=== PATIENT | female | born 1950 | race Caucasian/White ===

== ENCOUNTER 2017-10-02 10:06 | Emergency (ER) | payer OTHER, MEDICARE ==
[~2017-10-02] VITALS: Ht 152.4 cm; Wt 59.0 kg
--- NOTE | 2017-10-02 10:14 | ED MVC/FALL/TRAUMA COMPLAINT ---
History of Present Illness General Chief Complaint: Fall Stated Complaint: FALL AT [facility] Source: patient, family, old records, EMS Exam Limitations: no limitations Vital Signs & Intake/Output Vital Signs & Intake/Output Vital Signs Date Time Temp Pulse Resp B/P B/P Pulse O2 O2 Flow FiO2 Mean Ox Delivery Rate 10/02 1220 98.1 78 18 143/68 96 Room Air 10/02 1015 Room Air 10/02 1008 98.5 86 18 142/78 96 Room Air Room Air Allergies Coded Allergies: Penicillins (SWELLING 10/02/17) Triage Note: TRIAGE: 67 Y/O FEMALE BIBA FROM AMBULANCE S/P FALL ONTO KNEES, +HEADSTRIKE. +SWELLING TO LEFT SIDE OF HEAD. +ABRASIONS TO BILAT KNEES. ARRIVES WITH CERVICAL COLLAR IN PLACE. INITIALLY DENIED NECK PAIN - NOW REPORTS CERVICAL PAIN 12/15. -THINNERS. Triage Nurses Notes Reviewed? yes Onset: Abrupt Duration: minute(s): (30), constant Timing: recent history Severity: moderate Severity Numbers: 5 Injuries/Fall Location: head, neck, lower extremity Method of Injury: fall Loss of Consciousness: no loss of consciousness No Modifying Factors: none Associated Symptoms: DENIES HPI: 67-year-old female presents to ER with her daughter for evaluation complaining of neck and left-sided head pain, bilateral knee pain status post mechanical fall. She is walking her dog when the dog became excited and pulled her causing her to fall forward onto her head. She was able to get up by herself and sit in a chair until EMS arrived there was no loss consciousness was witnessed by her daughter. There is no prodromal dizziness light tenderness prior to the fall she denies any arm or other leg pain. No chest pain pain with inspiration. Pain nausea vomiting. She is not taken anything for her symptoms she is on a baby aspirin. No change in mental status per family. No prodromal dizziness light as prior to the fall (Eugene Chaney) Past History Travel History Traveled to [place] past 21 day No Medical History Any Pertinent Medical History? see below for history Cardiovascular: hypertension Endocrine: hypothyroidism Surgical History Surgical History: non-contributory Psychosocial History What is your primary language Amharic Tobacco Use: Never used ETOH Use: denies use Illicit Drug Use: denies illicit drug use Family History Hx Contributory? No (Eugene Chaney) Review of Systems Review of Systems Constitutional: Reports: see HPI. Comments Review of systems: See HPI, All other systems negative. Constitutional, no chills no fever, HEENT: no sore throat no congestion Cardiovascular: No chest pain Skin: no rashes, no change in skin Respiratory: No dyspnea no cough GI: No nausea no vomiting, : No dysuria Muscle skeletal: SEE HPI Neurologic: , no headache Heme/endocrine: No bruising Immunology: No lymphadenopathy (Ced SHIRLEY,Eugene) Physical Exam Physical Exam General Appearance: well developed/nourished, no apparent distress, alert Comments: Well-developed well-nourished person in no acute distress Head/Face: Small hematoma noted to the left temporal scalp, no laceration or abrasions no facial swelling Eyes: PERRL, EOMI, no conjunctival injection Ear:External auditory canal and Tympanic membranes clear Nose: atraumatic.Normal inspection: No bleeding Throat: Moist mucous membranes.Pharynx normal. Neck: C-collar in place Back: Nontender, no CVA tenderness. Full range of motion Cardiovascular: Regular rate and rhythms no murmurs r Respiratory: Chest nontender.There were no bony deformities, no asymmetry. No respiratory distress. Patient speaking in full complete sentences. Breath sounds clear to auscultation bilaterally: NO W/R/R Abdomen: Soft, nontender nondistended, no appreciable organomegaly. Normal bowel sounds. No rebound/guarding, Shoulder: Atraumatic/Stable. FROM . Elbow: Atraumatic/stable. FROM. No laxity Upper arm/Forearm: Atraumatic. Nontender. 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 Skin intact. FROM Pulses: Normal/equal radial pulses bilaterally. Brisk cap refill Hip/Pelvis: Atraumatic/Stable. FROM. No pain with pelvic compression Knee: Abrasions noted to bilateral anterior knees, stable. FROM. No joint swelling, no effusion. No laxity. Negative tushar/anterior drawer test. No pain with ROM Leg: Atraumatic. Nontender. No edema, 5 out of 5 strength in the lower extremity, normal dorsiflexion of great toe bilaterally, gross sensation is intact, patellar tendon reflex 2+ bilaterally. Ankle/Foot: Atraumatic/stable. Skin intact. FROM. No swelling, no effusion. No laxity on exam Pulses: Normal/equal DP/PT pulses bilaterally. Brisk cap refill Neuro: Alert oriented x3, motor sensory normal, cranial nerves II through XII grossly intact. There were no obvious focal neurologic abnormalities. Skin: No appreciable rash on exposed skin, skin is warm and dry. Psych: Mood and affect is normal, memory and judgment is normal. Core Measures ACS in differential dx? No CVA/TIA Diagnosis No Sepsis Present: No Sepsis Focused Exam Completed? No (Ced SHIRLEY,Eugene) Progress Differential Diagnosis: C/T/L spine injury, ext injury, ICH, pelvis injury, spinal cord injury Plan of Care: Orders Procedure Date/time Status CT HEAD WO IV CONTRAST 10/[address] CERV SPINE WO IV CONTRAST 10/02 1020 Active The patient medicated with Tylenol CAT scan x-rays ordered. I discussed with the patient at length all of their results. C-collar removed patient denies any complaints at this time ambulatory with steady gait here in the emergency room both patient and her daughter feel comfortable discharge. I had an extensive conversation regarding need for close follow up with their primary care physician this week as well as return precautions. I answered all of their questions, they feel comfortable with the plan and follow-up care. Diagnostic Imaging: Viewed by Me: Radiology Read, CT Scan. Discussed w/RAD: Radiology Read, CT Scan. Radiology Impression: PATIENT: LIONEL ZUNIGA PRESENT AGE: 67 PATIENT ACCOUNT NO: [id number] : 48 LOCATION: [facility] ORDERING PHYSICIAN: Eugene SHIRLEY SERVICE DATE: 10/02/17 EXAM TYPE: RAD - XRY- KNEE COMPLETE RIGHT EXAMINATION: XR KNEE, RIGHT CLINICAL INFORMATION: Fall. Pain. COMPARISON: None TECHNIQUE: Four views of the right knee. FINDINGS: Bone alignment is normal. No fracture or dislocation is seen. Joint spaces are normal. There is no joint effusion. There is an osteophyte at the quadriceps tendon insertion to the patella. IMPRESSION: No fracture or dislocation seen. DICTATED BY: Stephanie Gautam MD DATE/TIME DICTATED:10/02/171124 ADVERTISING SALES ASSISTANT:DINA DATE/TIME TRANSCRIBED:10/02/171124 CONFIDENTIAL, DO NOT COPY WITHOUT APPROPRIATE AUTHORIZATION. <Electronically signed in Other Vendor System> SIGNED BY: Stephanie Gautam MD 10/02/17 1129, PATIENT: LIONEL ZUNIGA PRESENT AGE: 67 PATIENT ACCOUNT NO: [id number] : 48 LOCATION: ER ORDERING PHYSICIAN: Eugene SHIRLEY SERVICE DATE : 10/02/17 EXAM TYPE: RAD - XRY-KNEE COMPLETE LEFT EXAMINATION: XR KNEE, LEFT CLINICAL INFORMATION: Fall. Pain. COMPARISON: None TECHNIQUE: Four views of the left knee. FINDINGS: Bone alignment is normal. No fracture or dislocation is seen. Joint spaces are normal. There is a very small joint effusion. There is an osteophyte at the quadriceps tendon insertion to the patella. IMPRESSION: No fracture or dislocation seen. DICTATED BY: Stephanie Gautam MD DATE/TIME DICTATED:10/02/171125 ADVERTISING SALES ASSISTANT:DINA DATE/TIME TRANSCRIBED:1125 CONFIDENTIAL, DO NOT COPY WITHOUT APPROPRIATE AUTHORIZATION. < Electronically signed in Other Vendor System> SIGNED BY: Stephanie Gautam MD 10/02/17 1130, PATIENT: LIONEL ZUNIGA PRESENT AGE: 67 PATIENT ACCOUNT NO: [id number] : 48 LOCATION: [facility] ORDERING PHYSICIAN: Eugene SHIRLEY SERVICE DATE: 10/02/17 EXAM TYPE: CAT - CT CERV SPINE WO IV CONTRAST; CT HEAD WO IV CONTRAST EXAMINATION: CT HEAD AND CT OF THE CERVICAL SPINE WITHOUT CONTRAST CLINICAL INFORMATION: 67-year-old female, status post fall, complaining of neck pain. COMPARISON: None. TECHNIQUE: Noncontrast CT scan of the head and cervical spine, using standard protocol. Multiplanar reconstructed images are obtained. Multiplanar reconstructed images are also obtained. FINDINGS: CT OF THE HEAD: The brain parenchyma, ventricles, cisterns and sulci appear unremarkable. Specifically, no evidence of intra-axial mass, mass effect, extra-axial fluid collection, midline shift, acute intraparenchymal hemorrhage and/or acute infarction present. Both orbital globes, extraocular muscles, optic nerves appear bilaterally symmetric and are unremarkable. Focal area of opacity is noted within the posterior inferior part of the left mastoid air cells, may represent minimal mastoiditis/edema/nonspecific fluid versus posttraumatic change. CT OF THE CERVICAL SPINE: Mild mid cervical dextroscoliosis is present. Significant facet joint arthritic changes are noted on the left at C4-C5 and to a lesser extent C3-C4. Ligamentous nuchae calcifications are noted overlying the spinous process of C6 and C7 vertebral bodies. Mild osteoarthrosis is noted at the atlantoaxial joint. The height of the cervical vertebrae is well maintained. There is nonspecific straightening of the cervical spine present. There are underlying mild multilevel degenerative spondylosis related changes noted throughout the entire cervical spine with most pronounced changes seen at C6-C7. The posterior appendages are intact. The prespinal soft tissues are unremarkable. IMPRESSION: 1. No acute intracranial pathology. 2. No CT evidence of any acute fracture, traumatic subluxation or prespinal soft tissue hematoma present. 3. Incidental note is made of focal opacity involving the posterior inferior part of the left mastoid air cells, may represent minimal focal mastoiditis/edema/nonspecific fluid or posttraumatic change. 4. Multilevel degenerative spondylosis of the cervical spine with underlying mild mid cervical dextroscoliosis and significant facet joint arthritic changes at C4-C5 and to a lesser extent C3-C4 on the left. Note is also made of ligamentous nuchae calcification overlying the spinous process of C6 and C7 vertebral bodies. DICTATED BY: Meenakshi Dillard MD DATE/TIME DICTATED: 10/02/171116 ADVERTISING SALES ASSISTANT:DINA DATE/TIME TRANSCRIBED:10/02/171116 CONFIDENTIAL, DO NOT COPY WITHOUT APPROPRIATE AUTHORIZATION. <Electronically signed in Other Vendor System> SIGNED BY: Meenakshi Dillard MD 10/02/17 1148 (Eugene Chaney) Departure Departure Time of Disposition: 1214 Disposition: HOME OR SELF CARE Condition: Stable Clinical Impression Primary Impression: Fall Secondary Impressions: Cervical strain, Minor head injury, Skin abrasion Additional Instructions: Rest ice and Tylenol Motrin for pain. Interchange ice and heat. Follow up primary care physician tomorrow return with any concerns. Departure Forms: Customer Survey General Discharge Information (Eugene Chaney) PA/REGIONAL FACILITIES SPECIALIST Co-Sign Statement Statement: ED Attending supervision documentation- x I saw and evaluated the patient. I have also reviewed all the pertinent lab results and diagnostic results. I agree with the findings and the plan of care as documented in the PA's/REGIONAL FACILITIES SPECIALIST's documentation. [] I have reviewed the ED Record and agree with the PA's/REGIONAL FACILITIES SPECIALIST's documentation. [] Additions or exceptions (if any) to the PAs/REGIONAL FACILITIES SPECIALIST's note and plan are summarized below: [] (Kash CHAVARRIA,Antonio)
--- NOTE | 2017-10-02 11:29 | RADIOLOGY REPORT ---
EXAMINATION: XR KNEE, RIGHT CLINICAL INFORMATION: Fall. Pain. COMPARISON: None TECHNIQUE: Four views of the right knee. FINDINGS: Bone alignment is normal. No fracture or dislocation is seen. Joint spaces are normal. There is no joint effusion. There is an osteophyte at the quadriceps tendon insertion to the patella. IMPRESSION: No fracture or dislocation seen.
--- NOTE | 2017-10-02 11:30 | RADIOLOGY REPORT ---
EXAMINATION: XR KNEE, LEFT CLINICAL INFORMATION: Fall. Pain. COMPARISON: None TECHNIQUE: Four views of the left knee. FINDINGS: Bone alignment is normal. No fracture or dislocation is seen. Joint spaces are normal. There is a very small joint effusion. There is an osteophyte at the quadriceps tendon insertion to the patella. IMPRESSION: No fracture or dislocation seen.
--- NOTE | 2017-10-02 11:48 | CT SCAN REPORT ---
EXAMINATION: CT HEAD AND CT OF THE CERVICAL SPINE WITHOUT CONTRAST CLINICAL INFORMATION: 67-year-old female, status post fall, complaining of neck pain. COMPARISON: None. TECHNIQUE: Noncontrast CT scan of the head and cervical spine, using standard protocol. Multiplanar reconstructed images are obtained. Multiplanar reconstructed images are also obtained. FINDINGS: CT OF THE HEAD: The brain parenchyma, ventricles, cisterns and sulci appear unremarkable. Specifically, no evidence of intra-axial mass, mass effect, extra-axial fluid collection, midline shift, acute intraparenchymal hemorrhage and/or acute infarction present. Both orbital globes, extraocular muscles, optic nerves appear bilaterally symmetric and are unremarkable. Focal area of opacity is noted within the posterior inferior part of the left mastoid air cells, may represent minimal mastoiditis/edema/nonspecific fluid versus posttraumatic change. CT OF THE CERVICAL SPINE: Mild mid cervical dextroscoliosis is present. Significant facet joint arthritic changes are noted on the left at C4-C5 and to a lesser extent C3-C4. Ligamentous nuchae calcifications are noted overlying the spinous process of C6 and C7 vertebral bodies. Mild osteoarthrosis is noted at the atlantoaxial joint. The height of the cervical vertebrae is well maintained. There is nonspecific straightening of the cervical spine present. There are underlying mild multilevel degenerative spondylosis related changes noted throughout the entire cervical spine with most pronounced changes seen at C6-C7. The posterior appendages are intact. The prespinal soft tissues are unremarkable. IMPRESSION: 1. No acute intracranial pathology. 2. No CT evidence of any acute fracture, traumatic subluxation or prespinal soft tissue hematoma present. 3. Incidental note is made of focal opacity involving the posterior inferior part of the left mastoid air cells, may represent minimal focal mastoiditis/edema/nonspecific fluid or posttraumatic change. 4. Multilevel degenerative spondylosis of the cervical spine with underlying mild mid cervical dextroscoliosis and significant facet joint arthritic changes at C4-C5 and to a lesser extent C3-C4 on the left. Note is also made of ligamentous nuchae calcification overlying the spinous process of C6 and C7 vertebral bodies.
[2017-10-02 12:20] VITALS: BP 143/68
== END 2017-10-02 12:41 ==
LOC: ERH 10:06
DX: S16.1XXA Strain of muscle, fascia and tendon at neck level, initial encounter (principal); S09.90XA Unspecified injury of head, initial encounter; S60.512A Abrasion of left hand, initial encounter; S80.211A Abrasion, right knee, initial encounter; S80.212A Abrasion, left knee, initial encounter; W19.XXXA Unspecified fall, initial encounter; Y93.K1 Activity, walking an animal
CPT/HCPCS: 73562-LT; 73562-RT